=== PATIENT | male | born 1980 | race African-American/Black ===

== ENCOUNTER 2017-11-02 15:25 | Inpatient (IN) ==
[2017-11-02] MEDS ORDERED: ASPIRIN 325 MG TABLET PO STA (16:15)
[2017-11-02] MEDS ORDERED: LABETALOL 100 MG/20 ML VIAL IV STA (16:15)
[2017-11-02] MEDS ORDERED: LABETALOL 20 MG/4 ML SYRINGE IV ONE (16:35)
[2017-11-02] MEDS ORDERED: ASPIRIN 325 MG TABLET ONE (16:55)
[2017-11-02 17:00] LABS: Basophils % 0.3 % (0.0-0.8); Eosinophils % 0.3 % (0.00-10.9); Hematocrit 43.5 VOL% (42.0-52.0); Hemoglobin 14.8 GM/DL (14.0-18.0); Immature Granulocytes % 0.3 %; Immature Granulocytes Absolute 0.03 #; Lymphocytes # 1.8 10*3/uL (1.4-4.0); Lymphocytes % 19.8 % (21.2-54.2); Mean Corpuscular Hemoglobin 28 PG (27-34); Mean Corpuscular Volume 83.5 FL (87-102); Monocytes # 0.6 10*3/uL (0.11-0.8); Monocytes % 6.6 % (1.7-12.7); Neutrophils # 6.6 10*3/uL (1.4-7.4); Neutrophils % 72.7 % (38.7-73.9); Platelet Count 232 T/CUMM (130-400); Red Blood Count 5.21 MC/CUMM (3.8-5.5); Red Cell Distribution Width 14.8 % (9.3-17.3); White Blood Count 9.1 T/CUMM (4-12)
[2017-11-02 17:31] LABS: Albumin 4.2 G/DL (3.4-5.0); Bilirubin,Total 0.9 MG/DL (0.2-1.0); Calcium 9.4 MG/DL (8.5-10.1); Magnesium 1.8 MG/DL (1.8-2.4); Osmolality,Calculated 263.4 MOS/KG (273-304); Potassium 3.6 MMOL/L (3.5-5.1); Total Protein 8.4 G/DL (6.4-8.3)
[2017-11-02] MEDS ORDERED: niCARdipine 25 MG/10 ML VIAL IV ONE (17:51)
[2017-11-02] MEDS: niCARdipine INJ 25 MG in SODIUM CHLORIDE 0.9% 240 ML IV SCH ×2 (18:00→23:09)
[2017-11-02] MEDS ORDERED: DILTIAZEM INJ 100 MG in SODIUM CHLORIDE 0.9% 100 ML IV SCH (18:00)
[2017-11-02] MEDS ORDERED: NICOTINE 21 MG/24 HR PATCH TRANSDERM PRN (18:03)
[2017-11-02] MEDS ORDERED: guaiFENesin/DM ER 600-30 MG TABLET PO PRN (18:03)
[2017-11-02] MEDS ORDERED: MORPHINE 2 MG/1 ML SYRINGE IV PRN (18:03)
[2017-11-02] MEDS ORDERED: ONDANSETRON 4 MG/2 ML VIAL IV PRN (18:03)
[2017-11-02] MEDS ORDERED: DOCUSATE SODIUM 100 MG CAPSULE PO PRN (18:03)
[2017-11-02] MEDS ORDERED: ACETAMINOPHEN 325 MG TABLET PO PRN (18:03)
[2017-11-02] MEDS ORDERED: niCARdipine INJ 25 MG in SODIUM CHLORIDE 0.9% 240 ML IV SCH (18:30)
[2017-11-02 19:39] LABS: Risk Ratio 1.51; Thyroid Stimulating Hormone 2.41 uIU/ml (0.358-3.74); VLDL CHOLESTEROL 10.6 MG/DL
[2017-11-02 19:53] LABS: Barbiturates Screen,Urine Negative (Negative); Benzodiazepines Screen,Urine Negative (Negative); Cannabinoid Screen,Urine Positive (Negative); Opiate Screen,Urine Negative (Negative); Phencyclidine Screen,Urine Negative (Negative)
[2017-11-02] MEDS: hydroCHLOROthiazide 25 MG TABLET PO SCH (21:54)
[2017-11-02] MEDS: ENOXAPARIN 40 MG/0.4 ML SYRINGE SUBCUT SCH (21:54)
[2017-11-02 22:02] LABS: Troponin I Only < 0.015 NG/ML (0.00-0.045)
[2017-11-03 06:30] LABS: Basophils % 0.4 % (0.0-0.8); Eosinophils # 0.1 10*3/uL (0.0-0.87); Eosinophils % 1.1 % (0.00-10.9); Hematocrit 42.2 VOL% (42.0-52.0); Hemoglobin 14.5 GM/DL (14.0-18.0); Immature Granulocytes % 0.4 %; Immature Granulocytes Absolute 0.02 #; Lymphocytes # 1.2 10*3/uL (1.4-4.0); Lymphocytes % 22.1 % (21.2-54.2); Mean Corpuscular HGB Conc 34.4 GM/DL (32-36); Mean Corpuscular Hemoglobin 28 PG (27-34); Mean Corpuscular Volume 82.4 FL (87-102); Mean Platelet Volume 10.8 FL (9.6-12.0); Monocytes # 0.4 10*3/uL (0.11-0.8); Monocytes % 7.3 % (1.7-12.7); Neutrophils # 3.8 10*3/uL (1.4-7.4); Neutrophils % 68.7 % (38.7-73.9); Platelet Count 225 T/CUMM (130-400); Red Blood Count 5.12 MC/CUMM (3.8-5.5); Red Cell Distribution Width 14.6 % (9.3-17.3); White Blood Count 5.5 T/CUMM (4-12)
[2017-11-03 06:59] LABS: Calcium 9.4 MG/DL (8.5-10.1)
[2017-11-03 07:00] LABS: Magnesium 2.1 MG/DL (1.8-2.4); Osmolality,Calculated 266.2 MOS/KG (273-304); Potassium 3.2 MMOL/L (3.5-5.1)
[2017-11-03] MEDS: hydroCHLOROthiazide 25 MG TABLET PO SCH (08:40)
[2017-11-03] MEDS: PANTOPRAZOLE 40 MG TABLET PO SCH (08:40)
[2017-11-03] MEDS ORDERED: NIFEdipine 10 MG CAPSULE PO PRN (10:21)
[2017-11-03] MEDS ORDERED: ALUMINUM/MAGNES/SIMETH MAX STR 30 ML UDCUP PO PRN (10:22)
[2017-11-03] MEDS: ATORVASTATIN 20 MG TABLET PO SCH (12:37)
[2017-11-03] MEDS: POTASSIUM CHLORIDE 20 MEQ TABLET PO SCH ×3 (12:39→16:57)
[2017-11-03] MEDS: ENOXAPARIN 40 MG/0.4 ML SYRINGE SUBCUT SCH (21:07)
[2017-11-04 05:58] LABS: Magnesium 2.1 MG/DL (1.8-2.4); Osmolality,Calculated 276.7 MOS/KG (273-304); Potassium 4.2 MMOL/L (3.5-5.1)
[2017-11-04] MEDS: PANTOPRAZOLE 40 MG TABLET PO SCH (09:22)
[2017-11-04] MEDS: ATORVASTATIN 20 MG TABLET PO SCH (09:22)
[2017-11-04] MEDS: hydroCHLOROthiazide 25 MG TABLET PO SCH (09:22)
[2017-11-04 12:13] VITALS: BP 132/80
== END 2017-11-04 12:42 | disposition home or self-care (01) | DRG 305 ==
LOC: N.ED 15:25 → N.EDINP 15:25 → INTOOBSV 18:04 → OBSVTOIN 18:04 → N.CC 19:01 → N.2E 11-03 18:38
PROVIDERS: ADMIT Internal Medicine; ATTEND Internal Medicine

== ENCOUNTER 2018-04-09 09:57 | Inpatient (IN) ==
[2018-04-09 10:41] LABS: Basophils % 0.2 % (0.0-0.8); Hematocrit 37.3 VOL% (42.0-52.0); Hemoglobin 12.5 GM/DL (14.0-18.0); Immature Granulocytes % 0.5 %; Immature Granulocytes Absolute 0.04 #; Lymphocytes # 2.3 10*3/uL (1.4-4.0); Mean Corpuscular HGB Conc 33.5 GM/DL (32-36); Mean Corpuscular Hemoglobin 28 PG (27-34); Mean Platelet Volume 9.1 FL (9.6-12.0); Monocytes # 0.7 10*3/uL (0.11-0.8); Monocytes % 8.2 % (1.7-12.7); Neutrophils # 5.4 10*3/uL (1.4-7.4); Neutrophils % 64.1 % (38.7-73.9); Platelet Count 265 T/CUMM (130-400); Red Blood Count 4.44 MC/CUMM (3.8-5.5); Red Cell Distribution Width 14.9 % (9.3-17.3); White Blood Count 8.5 T/CUMM (4-12)
[2018-04-09] MEDS ORDERED: ONDANSETRON 4 MG/2 ML VIAL IV STA (10:44)
[2018-04-09] MEDS ORDERED: hydrALAZINE 20 MG/1 ML VIAL IV STA ×2 (10:44→11:25)
[2018-04-09] MEDS ORDERED: NITROGLYCERIN 2% OINT 1 INCH/GM PACK TOP STA (10:44)
[2018-04-09] MEDS ORDERED: ASPIRIN 325 MG TABLET PO STA (10:44)
[2018-04-09] MEDS ORDERED: MORPHINE 4 MG/1 ML VIAL IV STA (10:44)
[2018-04-09 10:52] LABS: INR 0.9; Partial Thromboplastin Time 29.3 SECS (0-40)
[2018-04-09 11:05] LABS: Alanine Aminotransferase 32 U/L (16-61); Albumin 4.4 G/DL (3.4-5.0); Alkaline Phosphatase 54 U/L (45-117); Aspartate Amino Transferase 37 U/L (0-37); Blood Urea Nitrogen 8 MG/DL (7-18); Calcium 8.9 MG/DL (8.5-10.1); Glucose 86 MG/DL (74-106); Osmolality,Calculated 273.5 MOS/KG (273-304); Potassium 3.7 MMOL/L (3.5-5.1); Sodium 139 MMOL/L (136-145); Total Protein 8.2 G/DL (6.4-8.3); Troponin I Only < 0.015 NG/ML (0.00-0.045)
[2018-04-09 11:31] LABS: Apearance,Urine CLEAR (Clear); Bilirubin,Urine Negative (Negative); Blood, Urine Negative (Negative); Glucose,Urine (UA) Negative (Negative); Ketones,Urine 5 mg/dL (Negative); Mucus,Urine Occasional /LPF (Occasional); Nitrite,Urine Negative (Negative); Protein,Urine Negative; RBC,Urine <1 /HPF (0-4); Urine Color Straw (Yellow); Urine Specific Gravity 1.009 (1.001-1.035); Urine Urobilinogen < 2.0 EU/DL (0.2-1.0)
[2018-04-09 11:34] LABS: Barbiturates Screen,Urine Negative (Negative); Benzodiazepines Screen,Urine Negative (Negative); Cannabinoid Screen,Urine Positive (Negative); Opiate Screen,Urine Negative (Negative); Phencyclidine Screen,Urine Negative (Negative)
[2018-04-09] MEDS ORDERED: DOCUSATE SODIUM 100 MG CAPSULE PO PRN (13:49)
[2018-04-09] MEDS ORDERED: ONDANSETRON 4 MG/2 ML VIAL IV PRN (13:49)
[2018-04-09] MEDS ORDERED: ALBUTEROL 2.5 MG/3 ML NEB RESP TX PRN (13:49)
[2018-04-09] MEDS ORDERED: ACETAMINOPHEN 325 MG TABLET PO PRN (13:49)
[2018-04-09] MEDS ORDERED: ENOXAPARIN 40 MG/0.4 ML SYRINGE SUBCUT SCH (14:00)
[2018-04-09] MEDS ORDERED: niCARdipine INJ 25 MG in SODIUM CHLORIDE 0.9% 240 ML IV PRN (14:05)
[2018-04-09] MEDS ORDERED: VALSARTAN 160 MG TABLET PO ONE (14:29)
[2018-04-09] MEDS ORDERED: amLODIPine 10 MG TABLET PO ONE (14:29)
[2018-04-09 14:46] LABS: Calcium 9.2 MG/DL (8.5-10.1); Osmolality,Calculated 271.7 MOS/KG (273-304); Potassium 3.3 MMOL/L (3.5-5.1)
[2018-04-09] MEDS: NICOTINE 21 MG/24 HR PATCH TRANSDERM SCH (15:39)
[2018-04-09] MEDS: THIAMINE 200 MG/2 ML VIAL IV SCH (15:39)
[2018-04-09] MEDS ORDERED: hydrALAZINE 20 MG/1 ML VIAL IV PRN (23:24)
[2018-04-09] MEDS ORDERED: ALUMINUM/MAGNES/SIMETH MAX STR 30 ML UDCUP PO PRN (23:24)
[2018-04-10 04:35] LABS: Basophils % 0.2 % (0.0-0.8); Eosinophils # 0.1 10*3/uL (0.0-0.87); Eosinophils % 0.6 % (0.00-10.9); Hematocrit 40.4 VOL% (42.0-52.0); Hemoglobin 13.7 GM/DL (14.0-18.0); Immature Granulocytes % 0.3 %; Immature Granulocytes Absolute 0.03 #; Lymphocytes # 1.7 10*3/uL (1.4-4.0); Lymphocytes % 19.8 % (21.2-54.2); Mean Corpuscular HGB Conc 33.9 GM/DL (32-36); Mean Corpuscular Hemoglobin 28 PG (27-34); Monocytes # 0.8 10*3/uL (0.11-0.8); Monocytes % 8.9 % (1.7-12.7); Neutrophils # 6.1 10*3/uL (1.4-7.4); Neutrophils % 70.2 % (38.7-73.9); Platelet Count 280 T/CUMM (130-400); Red Blood Count 4.87 MC/CUMM (3.8-5.5); White Blood Count 8.7 T/CUMM (4-12)
[2018-04-10 05:13] LABS: Thyroid Stimulating Hormone 3.17 uIU/ml (0.358-3.74)
[2018-04-10] MEDS: NICOTINE 21 MG/24 HR PATCH TRANSDERM SCH (08:36)
[2018-04-10] MEDS: THIAMINE 200 MG/2 ML VIAL IV SCH (08:38)
[2018-04-10] MEDS ORDERED: VALSARTAN 160 MG TABLET PO SCH (09:00)
[2018-04-10] MEDS ORDERED: amLODIPine 10 MG TABLET PO SCH (09:00)
[2018-04-10] MEDS ORDERED: ATORVASTATIN 20 MG TABLET PO SCH (09:00)
[2018-04-10] MEDS ORDERED: PANTOPRAZOLE 40 MG TABLET PO SCH (09:00)
[2018-04-10 09:08] VITALS: BP 121/90
== END 2018-04-10 10:48 | disposition home or self-care (01) | DRG 897 ==
LOC: N.ED 09:57 → N.EDINP 12:00 → N.CC 12:40
PROVIDERS: ADMIT Internal Medicine; ATTEND Internal Medicine